=== PATIENT | female | born 1970 | race Caucasian/White ===

== ENCOUNTER 2022-12-01 06:27 | Inpatient (IN) | payer OTHER ==
[~2022-12-01] VITALS: Ht 162.6 cm; Wt 103.4 kg
[2022-12-01 06:56] LABS: Basophils # (auto) 0.1 10 ^3/uL (0-0.2); Basophils % (auto) 0.6 % (0.0-2.0); Eosinophils # (auto) 0.4 10 ^3/uL (0-0.8); Eosinophils % (auto) 2.8 % (0.0-7.0); Hematocrit 42.9 % (36.0-46.0); Hemoglobin 13.8 g/dL (12.2-16.2); Lymphocytes # (auto) 1.7 10 ^3/uL (0.4-5.4); Lymphocytes % (auto) 12.1 % (10.0-50.0); Mean Corpuscular Hemoglobin 31.1 pg (28.0-32.0); Mean Corpuscular Hgb Conc. 32.2 g/dL (32.0-36.0); Mean Corpuscular Volume 96.4 fL (80.0-100.0); Monocytes # (auto) 0.8 10 ^3/uL (0-1.3); Monocytes % (auto) 5.5 % (0.0-12.0); Neutrophils # (auto) 11.2 10 ^3/uL (1.6-8.6); Nucleated Red Blood Cells % 0.1 %; Red Blood Cells 4.44 10^6/uL (4.0-5.20); White Blood Cell 14.2 10^3/uL (4.4-10.8)
[2022-12-01] MEDS ORDERED: ASPirin 325 MG TAB PO ONE (07:30)
[2022-12-01] MEDS ORDERED: cloNIDine HCL 0.1 MG TAB PO ONE (09:30)
[2022-12-01 09:36] LABS: Albumin 3.6 g/dL (3.4-5.0); Calcium 10.1 mg/dL (8.5-10.1); Magnesium 2.4 mg/dL (1.6-2.6)
[2022-12-01 09:39] LABS: BUN/Creatinine Ratio 15.2 (10.0-20.0); Bilirubin, Total 0.3 mg/dL (0.2-1.0); Total Protein 7.6 g/dL (6.4-8.2)
[2022-12-01] MEDS ORDERED: ACETAMINOPHEN 325 MG TAB PO PRN (10:30)
[2022-12-01] MEDS ORDERED: NITROGLYCERIN 0.4 MG SL TAB SL PRN (10:30)
[2022-12-01] MEDS ORDERED: MORPHINE SULFATE INJ 2 MG/ml SYRG IV PRN (10:30)
[2022-12-01] MEDS ORDERED: HYDROcodone-ACET 5/325MG TAB PO PRN (10:30)
[2022-12-01 10:51] LABS: Urine Bacteria NONE SEEN /hpf (None Seen); Urine Blood 1+ /uL (Negative); Urine Specific Gravity 1.012 (1.001-1.035); Urine WBC 11 /hpf (0 - 5)
[2022-12-01 10:57] LABS: Alcohol, Urine < 3.0 mg/dL (0-10); Barbiturate Scree,Urine NEGATIVE (NEGATIVE); Cannabinoid Screen, Urine NEGATIVE (NEGATIVE)
[2022-12-01 11:07] LABS: Amphetamine Screen, Urine POSITIVE (NEGATIVE); Benzodiazephine Screen, Urine NEGATIVE (NEGATIVE); Cocaine Screen, Urine NEGATIVE (NEGATIVE); Opiate Scree,Urine NEGATIVE (NEGATIVE); Phencyclidine Screen, Urine NEGATIVE (NEGATIVE)
[2022-12-01] MEDS: LISINOPRIL 10 MG TAB PO SCH (12:21)
[2022-12-01] MEDS ORDERED: ONDANSETRON HCL 4 MG/2 ML VIAL IV PRN (12:30)
[2022-12-01] MEDS: SOD CHL 0.45% 1,000 ML IV SCH ×2 (13:15→23:15)
[2022-12-01] MEDS: METOPROLOL SUCCINATE XL 50 MG TAB PO SCH (13:27)
[2022-12-01 15:32] LABS: INR 0.95 (0.9-1.15); Partial Thromboplastin Time 28.1 SEC (24.5-34.5)
[2022-12-01 17:15] VITALS: PULSE 20; RESP 20; O2SAT 96
[2022-12-01] MEDS: hydrALAZINE HCL 20 MG/ML VL IV SCH ×2 (18:10→23:49)
[2022-12-01] MEDS ORDERED: ATORVASTATIN 20 MG TAB PO SCH (22:00)
[2022-12-01 23:29] VITALS: BP 131/72; PULSE 70; RESP 20; TEMP 98.3; O2SAT 98
[2022-12-02] MEDS: SOD CHL 0.45% 1,000 ML IV SCH ×2 (01:21→03:53)
[2022-12-02 05:00] VITALS: BP 135/75; PULSE 77; RESP 18; TEMP 98.3; O2SAT 98
[2022-12-02] MEDS: hydrALAZINE HCL 20 MG/ML VL IV SCH ×2 (05:38→12:00)
[2022-12-02 06:20] LABS: Basophils # (auto) 0.1 10 ^3/uL (0-0.2); Basophils % (auto) 0.9 % (0.0-2.0); Eosinophils # (auto) 0.3 10 ^3/uL (0-0.8); Eosinophils % (auto) 4.5 % (0.0-7.0); Hematocrit 38.3 % (36.0-46.0); Lymphocytes # (auto) 2.1 10 ^3/uL (0.4-5.4); Lymphocytes % (auto) 30.1 % (10.0-50.0); Mean Corpuscular Hemoglobin 31.7 pg (28.0-32.0); Mean Corpuscular Hgb Conc. 33.9 g/dL (32.0-36.0); Mean Corpuscular Volume 93.6 fL (80.0-100.0); Monocytes # (auto) 0.7 10 ^3/uL (0-1.3); Monocytes % (auto) 9.4 % (0.0-12.0); Neutrophils # (auto) 3.9 10 ^3/uL (1.6-8.6); Neutrophils % (auto) 55.1 % (37.0-80.0); Nucleated Red Blood Cells % 0.1 %; Red Cell Distribution Width 13.2 % (11.8-14.3); White Blood Cell 7.1 10^3/uL (4.4-10.8)
[2022-12-02 06:40] LABS: Calcium 8.9 mg/dL (8.5-10.1)
[2022-12-02 06:44] LABS: BUN/Creatinine Ratio 21.6 (10.0-20.0); Bilirubin, Total 0.4 mg/dL (0.2-1.0); Total Protein 6.7 g/dL (6.4-8.2)
[2022-12-02 08:00] VITALS: PULSE 115; RESP 15; O2SAT 94
[2022-12-02 09:00] VITALS: BP 111/54; PULSE 71; RESP 19; TEMP 98; O2SAT 99
[2022-12-02] MEDS: METOPROLOL SUCCINATE XL 50 MG TAB PO SCH (09:24)
[2022-12-02] MEDS: LISINOPRIL 10 MG TAB PO SCH (09:24)
[2022-12-02] MEDS ORDERED: ASPirin-EC 81 mg tab PO SCH (10:00)
[2022-12-02 13:00] VITALS: BP 117/81; PULSE 83; RESP 20; TEMP 98.4; O2SAT 98
[2022-12-02] MEDS ORDERED: LISI10TA34 PO (16:09)
[2022-12-02] MEDS ORDERED: CEPH250C PO (16:10)
[2022-12-02 16:47] VITALS: BP 125/73; PULSE 73; TEMP 36.9
[2022-12-02 17:00] VITALS: BP 144/93; PULSE 81; RESP 19; TEMP 97.8; O2SAT 96
== END 2022-12-02 17:54 | disposition home or self-care (01) | DRG 198 ==
LOC: ER 06:27 → TELE 10:29 → TELE-WESTW 23:22
PROVIDERS: ADMIT Internal Medicine; ATTEND Internal Medicine
DX: I20.1 Angina pectoris with documented spasm (principal); E66.01 Morbid (severe) obesity due to excess calories; F15.10 Other stimulant abuse, uncomplicated; I10 Essential (primary) hypertension; N39.0 Urinary tract infection, site not specified; I16.0 Hypertensive urgency; Z68.39 Body mass index [BMI] 39.0-39.9, adult; Z79.899 Other long term (current) drug therapy; Z90.710 Acquired absence of both cervix and uterus; Z91.199 Patient's noncompliance with other medical treatment and regimen due to unspecified reason; Z72.0 Tobacco use
CPT/HCPCS: 36415; 71046; 80053; 80061; 80307; 81001; 83036; 83735; 83880; 84443; 84484; 85025; 85379; 85610; 85730; 93005; 93306; G0378

== ENCOUNTER 2024-07-17 12:12 | Emergency (ER) | payer OTHER ==
[~2024-07-17] VITALS: Ht 160 cm; Wt 94.3 kg
[~2024-07-17 12:12] MED LIST: CEPH250C PO; LISI10TA34 PO
[2024-07-17 12:39] VITALS: BP 154/99; PULSE 99; RESP 16; TEMP 98; O2SAT 100
[2024-07-17] MEDS ORDERED: NEOM0.1S10 EACHEYE (14:32)
--- NOTE | 2024-07-17 14:33 | ED.PDOC ---
Eye-HPI HPI Comments 52-year-old female presented to the [facility] complaining of red eyes duration one day Chief Complaint: Eye Problem Time Seen by MD: 13:06 Primary Care Provider: birgit Reviewed Notes: Nurses Notes, Medications, Allergies Allergies: Coded Allergies: NO KNOWN ALLERGIES (Unverified , 12/01/22) Home Meds Active Scripts Cephalexin (KEFLEX CAPSULE) 250 Mg Cp, 500 MG PO TID for 5 Days, #15 CAP Prov:OZZIE MEHTA MD 12/02/22 Lisinopril (Lisinopril) 10 Mg Tab, 10 MG PO DAILY for 30 Days, #30 TAB Prov:OZZIE MEHTA MD 12/02/22 Information Source: Patient Mode of Arrival: Ambulatory Timing: Hours Duration: Since onset Quality: Red, FB sensation, Discharge, Green Eye Location: Bilateral Lids: Red, Swelling, Discharge Conjunctiva: Injection, Swelling, Discharge, Green Cornea: Bilateral eyes, Normal Pupils: Normal EOM: Normal Fundus: Normal Slit lamp exam: Normal Anterior chamber: Normal Mouth: Normal ENT Ear Exam: Normal Nose: Normal Sinuses: Normal Oropharynx: Normal Onset: Spontaneous Throat Exposed to: None Eye Context Recent: Antibiotic Use History of: None Last Tetanus: UTD Associated signs and symptoms: Discharge, Tearing, Photophobia Past Medical History PAST MEDICAL HISTORY: Denies Surgical History: , Denies all surgeries SOUS CHEF History: Denies all SOUS CHEF Hx Family History Family History: Reviewed,noncontributory to illness Social History Smoker: Non-Smoker Alcohol: Denies ETOH Use Drugs: Denies Drug Use Lives In: Home Constitutional: denies: chills, diaphoresis, fatigue, fever, malaise, sweats, weakness, others EENTM: reports: blurred vision, eye redness; denies: double vision, ear bleeding, ear discharge, ear drainage, ear pain, ear ringing, eye pain, hearing loss, mouth pain, mouth swelling, nasal discharge, nose bleeding, nose congestion, nose pain, photophobia, tearing, throat pain, throat swelling, voice changes, others Respiratory: denies: cough, hemoptysis, orthopnea, SOB at rest, shortness of breath, SOB with excertion, stridor, wheezing, others Cardiovascular: denies: chest pain, dizzy spells, diaphoresis, Dyspnea on exertion, edema, irregular heart beat, left arm pain, lightheadedness, palpitations, PND, syncope, others Gastrointestinal: denies: abdomen distended, abdominal pain, blood streaked bowels, constipated, diarrhea, dysphagia, difficulty swallowing, hematemesis, melena, nausea, poor appetite, poor fluid intake, rectal bleeding, rectal pain, vomiting, others Genitourinary: denies: abnormal vagina bleeding, burning, dyspareunia, dysuria, flank pain, frequency, hematuria, incontinence, pain, , vagina discharge, urgency, others Neurological: denies: dizziness, fainting, headache, left sided numbness, left sided weakness, numbness, paresthesia, pre-existing deficit, right sided numbness, right sided weakness, seizure, speech problems, tingling, tremors, weakness, others Musculoskeletal: denies: back pain, gout, joint pain, joint swelling, muscle pain, muscle stiffness, neck pain, others Integumetry: denies: bruises, change in color, change in hair/nails, dryness, laceration, lesions, lumps, rash, wounds, others Allergic/Immunocompromised: denies: Difficulty Healing, Frequent Infections, Hives, Itching, others Hematologic/Lymphatic: denies: anemia, blood clots, easy bleeding, easy bruising, swollen glands, others Endocrine: denies: excessive hunger, excessive sweating, excessive thirst, excessive urination, flushing, intolerance to cold, intolerance to heat, une xplained weight gain, unexplained weight loss, others Psychiatric: denies: anxiety, bipolar disorder, depression, hopeless, panic disorder, schizophrenia, sleepless, suicidal, others All Other Systems: Reviewed and Negative Physical Exam General Appearance: Mild Distress HEENT: Normal ENT Inspection, PERRL/EOMI, Other (Purulent conjunctivitis) Neck: Full Range of Motion, Non-Tender, Normal, Normal Inspection Respiratory: Chest Non-Tender, Lungs Clear, No Accessory Muscle Use, No Respiratory Distress, Normal Breath Sounds Cardiovascular: No Edema, No JVD, No Murmur, No Gallop, Normal Peripheral P ulses, Regular Rate/Rhythm Breast Exam: Deferred Gastrointestinal: No Organomegaly, Non Tender, No Pulsatile Mass, Normal Bowel Sounds, Soft Genitalia: Deferred Pelvic: Deferred Rectal: Deferred Extremities: No calf tenderness, Normal capillary refill, Normal inspection, Normal range of motion, Non-tender, No pedal edema Neurologic: Alert, operations coordinator II-XII nml as Tested, No Motor Deficits, Normal Affect, Normal Mood, No Sensory Deficits Cerebellar Function: Normal Reflexes: Normal Skin: Dry, Normal Color, Warm Peripheral Pulses: 1+ carotid (R), 1+ carotid (L) Lymphatic: No Adenopathy Was a procedure done? Was a procedure done?: No EENT DIFF Eye: Conjunctivitis, Bacterial Ear: N/A Nose: N/A Mouth: N/A Sore Throat: N/A X-Ray, Labs, Meds, VS Vital Signs Date Time Temp Pulse Resp B/P (MAP) Pulse Ox O2 Delivery O2 Flow Rate FiO2 07/17/24 12:39 98.0 99 16 154/99 (117) 100 98.0 07/17/24 12:39 99 16 07/17/24 12:39 98.0 99 16 154/99 (117) 100 98.0 X-Ray, Labs, Meds, VS Comment In the [facility] patient presented with bilateral conjunctivitis the rest of the exam is normal Patient will be followed with her PCP Remind the patient is contagious Time of 1ST Reevaluation: 14:32 Reevaluation 1ST: Unchanged Consultation: PCP Patient Education/Counseling: Diagnosis, Treatment, Prognosis, Need For Follow Up Family Education/Counseling: Diagnosis, Treatment, Prognosis, Need For Follow Up, No Family Present Departure 1 Departure Time of Disposition: 14:30 Impression: Primary Impression: Acute purulent conjunctivitis, bilateral Disposition: 01 HOME / SELF CARE / HOMELESS Condition: Fair Additional Instructions: Cleaned both eyes with a soap and water at least twice a day e-Prescriptions [id number] (Maxitrol) 0.1 % Tegan 1 DROP EACHEYE QID for 5 Days, #5 ML Prov: WILNER FOLEY MD 07/17/24 Critical Care Note Critical Care Time?: No Stability Stability form required: No Heart Score Heart Score: Heart Score Response (Comments) Value History N/A 0 EKG N/A 0 Age 45-64 1 Risk Factors No known risk factors 0 Troponin N/A 0 Total 1 WILNER FOLEY MD Jul 17, 2024 14:33
== END 2024-07-17 14:42 | disposition home or self-care (01) ==
LOC: ER 12:12
DX: H10.9 Unspecified conjunctivitis (principal); Z98.890 Other specified postprocedural states